=== PATIENT | female | born 1945 | race Caucasian/White ===

== ENCOUNTER → 2017-03-06 | Outpatient (CLI) | payer MEDICARE, OTHER ==
[~2017-03-06] MED LIST: ASPIRIN EC81 MG PO; BOTOX SUB-Q; CENTRUM COMPLE1 EACH PO; GLUCOPHAGE500 MG PO; HYGROTON25 MG PO; INDERAL LA80 MG PO; KLONOPIN0.5 MG PO; LIPITOR40 MG PO; MELATIN3 MG PO; NORCO 5-325 MG1 TAB PO; NORVASC10 MG PO; OSCAL + D500 MG PO; PROZAC40 MG PO
== END | disposition disaster alternative care site (69) ==
LOC: GRAD 08:11
DX: R10.11 Right upper quadrant pain (principal); K86.89 Other specified diseases of pancreas
CPT/HCPCS: Q9967

== ENCOUNTER → 2017-03-06 | Outpatient (CLI) | payer MEDICARE, OTHER | END | disposition disaster alternative care site (69) | LOC: GOPD 10:54 | DX: K86.9 Disease of pancreas, unspecified (principal); K76.9 Liver disease, unspecified; K57.90 Diverticulosis of intestine, part unspecified, without perforation or abscess without bleeding; J98.4 Other disorders of lung; R93.5 Abnormal findings on diagnostic imaging of other abdominal regions, including retroperitoneum | CPT/HCPCS: J2001; J7030 ==

== ENCOUNTER → 2017-03-14 | Outpatient (CLI) | payer MEDICARE, OTHER | END | disposition disaster alternative care site (69) | LOC: LFPA 12:20 | DX: K86.9 Disease of pancreas, unspecified (principal) ==

== ENCOUNTER → 2017-04-18 | Outpatient (CLI) | payer MEDICARE, OTHER | END | disposition disaster alternative care site (69) | LOC: GKIC 11:08 | DX: C25.0 Malignant neoplasm of head of pancreas (principal); K86.89 Other specified diseases of pancreas; C22.9 Malignant neoplasm of liver, not specified as primary or secondary | CPT/HCPCS: A9552 ==